=== PATIENT | female | born 1965 | race Caucasian/White ===

== ENCOUNTER 2017-10-14 19:58 | Emergency (ER) | payer BC ==
[~2017-10-14 19:58] MED LIST: DIOHCT PO; LUNESTA2 MG PO; NORCO 7.5/3257.5 MG PO; PROZAC10 M1 PO; RELPAX40 MG PO; WELLBUTRIN XL300 MG PO
[2017-10-14 22:56] VITALS: BP 161/108
== END 2017-10-14 23:08 | disposition home or self-care (01) ==
LOC: ED 19:58
DX: G43.909 Migraine, unspecified, not intractable, without status migrainosus (principal); F32.9 Major depressive disorder, single episode, unspecified; I10 Essential (primary) hypertension; Z90.89 Acquired absence of other organs
CPT/HCPCS: J0780; J1170; J1885

== ENCOUNTER 2019-02-27 10:50 | Emergency (ER) | payer BC ==
[~2019-02-27] VITALS: Ht 167.6 cm; Wt 90.7 kg
[2019-02-27 11:37] LABS: BASOPHIL % 0.6 % (0-2); PLATELET COUNT 263 x10^3mcL (130-400); RED CELL DISTRIBUTION WIDTH 14.3 % (11.5-14.5)
[2019-02-27 11:42] LABS: CARBON DIOXIDE 31.5 mmol/L (21-32); CHLORIDE SERUM 103 mmol/L (98-107); CREATININE SERUM 0.9 mg/dL (0.6-1.0); GFR1 > 60 mL/min; GLUCOSE SERUM 102 mg/dL (74-106); POTASSIUM SERUM 3.8 mmol/L (3.5-5.1); SODIUM SERUM 144 mmol/L (136-145)
[2019-02-27 11:46] LABS: ALBUMIN 4.1 g/dL (3.4-5.0); ALKALINE PHOSPHATASE 72 U/L (46-116); ALT/SGPT 24 U/L (14-59); AST/SGOT 18 U/L (15-37); BILIRUBIN TOTAL 0.3 mg/dL (0.20-1.00); CHOLESTEROL 199 mg/dL (<200); TOTAL PROTEIN, SERUM 7.4 g/dL (6.4-8.2)
[2019-02-27 14:44] VITALS: BP 156/99
== END 2019-02-27 14:44 | disposition home or self-care (01) ==
LOC: ED 10:50
PROVIDERS: Specialist
DX: I10 Essential (primary) hypertension (principal); F32.9 Major depressive disorder, single episode, unspecified; G43.909 Migraine, unspecified, not intractable, without status migrainosus; Z98.890 Other specified postprocedural states
CPT/HCPCS: G0480; J3490; Q0092